=== PATIENT | female | born 1985 | race Caucasian/White ===

== ENCOUNTER 2019-03-14 12:40 | Outpatient (CLI) | payer MEDICAID ==
[~2019-03-14] VITALS: Ht 157.5 cm; Wt 77.0 kg
[2019-03-14 13:28] VITALS: BP 112/53
[2019-03-14 13:45] LABS: MICROSCOPIC INDICATED
[2019-03-14 13:57] LABS: AMPHETAMINE SCREEN, URINE Negative (Negative); BARBITURATE SCREEN, URINE Negative (Negative); BENZODIAZEPINE SCREEN, URINE Negative (Negative); CANNABINOID SCREEN, URINE Negative (Negative); COCAINE SCREEN, URINE Negative (Negative); METHADONE SCREEN, URINE Negative (Negative); OPIATE SCREEN, URINE Negative (Negative)
[2019-03-14 14:37] LABS: BASOPHILS # (AUTO) 0.02 x10^3/uL (0-0.1); BASOPHILS % (AUTO) 0 % (0-1); EOSINOPHILS % (AUTO) 2 % (1-7); LYMPHOCYTES % (AUTO) 15 % (22-44); MD NO; MEAN CORPUSCULAR HEMOGLOBIN 32.3 pg (27.0-34.8); MEAN CORPUSCULAR HGB CONC 33.2 g/dL (32.4-35.8); MEAN CORPUSCULAR VOLUME 97.1 fL (80-100); MONOCYTES # (AUTO) 0.66 x10^3/uL (0.2-0.8); MONOCYTES % (AUTO) 6 % (2-9); NEUTROPHILS # (AUTO) 8.37 x10^3/uL (1.8-6.8); NEUTROPHILS % (AUTO) 77 % (42-75); PLATELET COUNT 297 x10^3/uL (130-400); RED BLOOD COUNT 3.83 x10^6/uL (3.82-5.3); RED CELL DISTRIBUTION WIDTH 13.4 % (9.6-15.2)
[2019-03-14 14:46] LABS: CHLORIDE 108 mmol/L (98-107)
[2019-03-14 14:55] LABS: ALANINE AMINOTRANSFERASE 17 U/L (12-78); ALBUMIN 2.6 g/dL (3.4-5.0); ALKALINE PHOSPHATASE 86 U/L (45-117); ANION GAP 6 mmol/L (5-15); BILIRUBIN,TOTAL 0.4 mg/dL (0.2-1.0); CALCIUM 8.8 mg/dL (8.5-10.1); CREATININE 0.49 mg/dL (0.55-1.02); TOTAL PROTEIN 6.5 g/dL (6.4-8.2)
[2019-03-14 14:57] LABS: RAPID INFLUENZA A Negative (Negative); RAPID INFLUENZA B Negative (Negative)
== END 2019-03-14 15:21 | disposition home or self-care (01) ==
LOC: LDOP 12:40
PROVIDERS: ATTEND Obstetrics & Gynecology
DX: O09.523 Supervision of elderly multigravida, third trimester (principal); O26.813 Pregnancy related exhaustion and fatigue, third trimester; F41.9 Anxiety disorder, unspecified; F32.9 Major depressive disorder, single episode, unspecified; Z3A.36 36 weeks gestation of pregnancy
CPT/HCPCS: 36415; 59025; 80053; 80307; 81001; 85025; 87086; 87400; 99201; G0463

== ENCOUNTER 2019-03-28 02:54 | Outpatient (CLI) | payer MEDICAID ==
[~2019-03-28] VITALS: Ht 157.5 cm; Wt 78.0 kg
== END 2019-03-28 09:48 | disposition home or self-care (01) ==
LOC: LDOP 02:54 → UNDOADMOB 05:48 → LDIP 05:48 → UNDODISOB 09:48 → LDOP 09:48
PROVIDERS: ATTEND Obstetrics & Gynecology
DX: O26.893 Other specified pregnancy related conditions, third trimester (principal); R10.9 Unspecified abdominal pain; Z98.890 Other specified postprocedural states; F17.210 Nicotine dependence, cigarettes, uncomplicated; Z3A.37 37 weeks gestation of pregnancy; F12.90 Cannabis use, unspecified, uncomplicated; Z90.89 Acquired absence of other organs
CPT/HCPCS: 59025; 99211; G0378; G0463

== ENCOUNTER 2019-03-29 18:04 | Outpatient (CLI) | payer MEDICAID ==
[2019-03-29] MEDS ORDERED: ZOLPIDEM 5MG TABLET ONE (19:39)
[2019-03-29] MEDS ORDERED: ZOLPIDEM 5MG TABLET PO SCH (21:00)
== END 2019-03-29 19:45 | disposition home or self-care (01) ==
LOC: LDOP 18:04
PROVIDERS: ATTEND Obstetrics & Gynecology
DX: O26.893 Other specified pregnancy related conditions, third trimester (principal); Z3A.37 37 weeks gestation of pregnancy
CPT/HCPCS: 59025; 99211; G0463

== ENCOUNTER 2019-04-04 22:02 | Outpatient (CLI) | payer MEDICAID ==
[2019-04-04 22:50] LABS: MICROSCOPIC NOT IND
[2019-04-04 22:52] LABS: CULTURE INDICATED? NO
[2019-04-04 23:02] LABS: AMPHETAMINE SCREEN, URINE Negative (Negative); BARBITURATE SCREEN, URINE Negative (Negative); BENZODIAZEPINE SCREEN, URINE Negative (Negative); CANNABINOID SCREEN, URINE Negative (Negative); COCAINE SCREEN, URINE Negative (Negative); METHADONE SCREEN, URINE Negative (Negative); OPIATE SCREEN, URINE Negative (Negative)
[2019-04-05] MEDS ORDERED: PREN1TAB60 PO (18:34)
== END 2019-04-05 00:02 | disposition home or self-care (01) ==
LOC: LDOP 22:02
PROVIDERS: ATTEND Obstetrics & Gynecology
DX: O42.92 Full-term premature rupture of membranes, unspecified as to length of time between rupture and onset of labor (principal); Z3A.39 39 weeks gestation of pregnancy
CPT/HCPCS: 59025; 80307; 81003; 89060; 99211; G0463; Q0114

== ENCOUNTER 2019-04-05 17:39 | Inpatient (IN) | payer MEDICAID ==
[~2019-04-05] VITALS: Ht 157.5 cm; Wt 80.0 kg
[2019-04-05 18:00] VITALS: BP 122/63
[2019-04-05] MEDS ORDERED: PREN1TAB60 PO (18:34)
[2019-04-05] MEDS ORDERED: OXYTOCIN 30U/ 0.9% NaCL 500ML 500 ML IV ONE (18:43)
[2019-04-05] MEDS ORDERED: NEWBORN KIT ONE (18:52)
[2019-04-05] MEDS ORDERED: OXYTOCIN 30U/ 0.9% NaCL 500ML 500 ML ONE (18:52)
[2019-04-05] MEDS ORDERED: MISOPROSTOL 200 MCG TABLET ONE (18:52)
[2019-04-05] MEDS ORDERED: LIDOCAINE 1%, 20ML ONE (18:52)
[2019-04-05] MEDS ORDERED: TERBUTALINE 1 MG/ML, 1ML IVPush PRN (19:00)
[2019-04-05] MEDS ORDERED: TERBUTALINE 1 MG/ML, 1ML SQ PRN (19:00)
[2019-04-05] MEDS ORDERED: FENTANYL PF 100 MCG/2ML IV PRN (19:00)
[2019-04-05] MEDS ORDERED: ONDANSETRON 2MG/ML, 2ML IVPush PRN (19:00)
[2019-04-05 19:02] LABS: AMPHETAMINE SCREEN, URINE Negative (Negative); BARBITURATE SCREEN, URINE Negative (Negative); BENZODIAZEPINE SCREEN, URINE Negative (Negative); CANNABINOID SCREEN, URINE Negative (Negative); COCAINE SCREEN, URINE Negative (Negative); METHADONE SCREEN, URINE Negative (Negative); OPIATE SCREEN, URINE Negative (Negative)
[2019-04-05] MEDS: LACTATED RINGERS 1,000 ML IV SCH ×2 (19:15)
[2019-04-05 19:32] LABS: BASOPHILS # (AUTO) 0.03 x10^3/uL (0-0.1); BASOPHILS % (AUTO) 0 % (0-1); EOSINOPHILS # (AUTO) 0.04 x10^3/uL (0-0.4); EOSINOPHILS % (AUTO) 0 % (1-7); LYMPHOCYTES # (AUTO) 2.17 x10^3/uL (1-3.4); LYMPHOCYTES % (AUTO) 18 % (22-44); MD NO; MEAN CORPUSCULAR HEMOGLOBIN 32.4 pg (27.0-34.8); MEAN CORPUSCULAR HGB CONC 33.9 g/dL (32.4-35.8); MEAN CORPUSCULAR VOLUME 95.6 fL (80-100); MEAN PLATELET VOLUME 7.1 fL (7.4-10.4); MONOCYTES # (AUTO) 0.79 x10^3/uL (0.2-0.8); MONOCYTES % (AUTO) 6 % (2-9); NEUTROPHILS # (AUTO) 9.26 x10^3/uL (1.8-6.8); NEUTROPHILS % (AUTO) 75 % (42-75); PLATELET COUNT 279 x10^3/uL (130-400); RED BLOOD COUNT 3.94 x10^6/uL (3.82-5.3); RED CELL DISTRIBUTION WIDTH 13.1 % (9.6-15.2)
[2019-04-05 20:03] VITALS: BP 125/59
[2019-04-05] MEDS ORDERED: OXYTOCIN 30U/ 0.9% NaCL 500ML 500 ML IV PRN (21:59)
[2019-04-05] MEDS ORDERED: FENTANYL PF 100 MCG/2ML ONE ×2 (22:11→23:15)
[2019-04-05] MEDS: FENTANYL PF 100 MCG/2ML IVPush PRN ×2 (22:14→23:19)
[2019-04-05] MEDS ORDERED: FENTANYL/BUPIV./NS/PF 250 ML EPIDCONT SCH (23:45)
[2019-04-05] MEDS ORDERED: FENTANYL PF 500 MCG, BUPIVACAINE/PF 0.5%, 30ML 62.5 ML in SODIUM CHLORIDE 0.9% 177.5 ML EPIDCONT SCH (23:45)
[2019-04-06] MEDS: FENTANYL PF 100 MCG/2ML IVPush PRN (00:24)
[2019-04-06] MEDS ORDERED: FENTANYL PF 100 MCG/2ML ONE (00:30)
[2019-04-06] MEDS ORDERED: BUPIVACAINE 0.25% ONE ×2 (00:44→00:46)
[2019-04-06] MEDS ORDERED: FENTANYL/BUPIV./NS/PF 250 ML EPIDCONT ONE (00:46)
[2019-04-06] MEDS ORDERED: LIDOCAINE/PF 1.5%-EPI 1:200K, 30ML ONE (00:46)
[2019-04-06] MEDS ORDERED: LIDOCAINE 1%, 20ML ONE (00:46)
[2019-04-06] MEDS ORDERED: EPHEDRINE 50 MG/ML, 1ML ONE (01:05)
[2019-04-06] MEDS ORDERED: FENTANYL/BUPIV./NS/PF 250 ML EPIDCONT SCH (01:09)
[2019-04-06] MEDS ORDERED: NALOXONE 0.4 MG/ML, 1ML IVPush PRN (01:30)
[2019-04-06] MEDS ORDERED: LACTATED RINGERS 1,000 ML IVBOLUS PRN ×2 (01:30)
[2019-04-06] MEDS ORDERED: DIPHENHYDRAMINE 50 MG/ML, 1ML IVPush PRN (01:30)
[2019-04-06] MEDS ORDERED: EPHEDRINE 50 MG/ML, 1ML IVPush PRN ×2 (01:30)
[2019-04-06] MEDS ORDERED: ONDANSETRON 2MG/ML, 2ML IVPush PRN (01:30)
[2019-04-06] MEDS: LACTATED RINGERS 1,000 ML IV SCH ×9 (01:59→23:45)
[2019-04-06] MEDS ORDERED: BISACODYL 10 MG SUPP PR PRN (06:30)
[2019-04-06] MEDS ORDERED: MISOPROSTOL 200 MCG TABLET PR PRN (06:30)
[2019-04-06] MEDS ORDERED: GLYCERIN ADULT SUPP PR PRN (06:30)
[2019-04-06] MEDS ORDERED: ACETAMINOPHEN 325 MG TABLET PO PRN (06:30)
[2019-04-06] MEDS ORDERED: ONDANSETRON 2MG/ML, 2ML IV PRN (06:30)
[2019-04-06] MEDS ORDERED: SIMETHICONE 80 MG CHEW TAB PO PRN (06:30)
[2019-04-06] MEDS ORDERED: METHYLERGONOVINE 0.2 MG/ML IM PRN (06:30)
[2019-04-06] MEDS ORDERED: METOCLOPRAMIDE 5 MG/ML, 2ML IV PRN (06:30)
[2019-04-06] MEDS ORDERED: OXYTOCIN 30U/ 0.9% NaCL 500ML 500 ML ONE (08:07)
[2019-04-06] MEDS: OXYTOCIN 30U/ 0.9% NaCL 500ML 500 ML IV SCH ×2 (08:09→16:26)
[2019-04-06 08:30] VITALS: BP 107/65
[2019-04-06] MEDS: PRENATAL VIT/IRON/FA 1 EACH TABLET PO SCH (09:01)
[2019-04-06] MEDS: DOCUSATE 100 MG CAPSULE PO PRN (09:01)
[2019-04-06] MEDS: IBUPROFEN 800 MG TABLET PO PRN ×2 (09:01→18:19)
[2019-04-06 12:53] VITALS: BP 106/69
[2019-04-06 14:05] LABS: MEAN CORPUSCULAR HEMOGLOBIN 32.4 pg (27.0-34.8); MEAN CORPUSCULAR HGB CONC 33.7 g/dL (32.4-35.8); MEAN CORPUSCULAR VOLUME 96.2 fL (80-100); MEAN PLATELET VOLUME 6.9 fL (7.4-10.4); PLATELET COUNT 256 x10^3/uL (130-400); RED BLOOD COUNT 3.46 x10^6/uL (3.82-5.3); RED CELL DISTRIBUTION WIDTH 13.5 % (9.6-15.2)
[2019-04-06 14:35] LABS: BASOPHILS # (AUTO) 0.01 x10^3/uL (0-0.1); BASOPHILS % (AUTO) 0 % (0-1); EOSINOPHILS # (AUTO) 0.05 x10^3/uL (0-0.4); EOSINOPHILS % (AUTO) 0 % (1-7); LYMPHOCYTES # (AUTO) 1.59 x10^3/uL (1-3.4); LYMPHOCYTES % (AUTO) 8 % (22-44); MD SCAN; MONOCYTES # (AUTO) 0.82 x10^3/uL (0.2-0.8); MONOCYTES % (AUTO) 4 % (2-9); NEUTROPHILS # (AUTO) 17.95 x10^3/uL (1.8-6.8); NEUTROPHILS % (AUTO) 88 % (42-75)
[2019-04-06 16:30] VITALS: BP 100/58
[2019-04-06] MEDS: OXYcodone/APAP 5/325MG TABLET PO PRN ×2 (18:19→22:25)
[2019-04-06 19:31] VITALS: BP 99/64
[2019-04-07] MEDS: LACTATED RINGERS 1,000 ML IV SCH ×9 (00:40→23:45)
[2019-04-07 00:41] VITALS: BP 108/71
[2019-04-07] MEDS: OXYTOCIN 30U/ 0.9% NaCL 500ML 500 ML IV SCH ×3 (00:41→22:26)
[2019-04-07 03:56] VITALS: BP 100/67
[2019-04-07] MEDS: IBUPROFEN 600 MG TABLET PO PRN ×3 (05:45→19:44)
[2019-04-07] MEDS: OXYcodone/APAP 5/325MG TABLET PO PRN ×4 (05:45→19:45)
[2019-04-07] MEDS: DOCUSATE 100 MG CAPSULE PO PRN ×2 (05:45→09:58)
[2019-04-07 07:30] VITALS: BP 106/66
[2019-04-07] MEDS: PRENATAL VIT/IRON/FA 1 EACH TABLET PO SCH (09:58)
[2019-04-07 20:03] VITALS: BP 104/70
[2019-04-08] MEDS: LACTATED RINGERS 1,000 ML IV SCH ×5 (01:09→10:43)
[2019-04-08] MEDS: OXYcodone/APAP 5/325MG TABLET PO PRN ×3 (02:35→12:57)
[2019-04-08] MEDS: IBUPROFEN 600 MG TABLET PO PRN (02:36)
[2019-04-08 08:00] VITALS: BP 112/65
[2019-04-08] MEDS: IBUPROFEN 800 MG TABLET PO PRN (08:13)
[2019-04-08] MEDS: PRENATAL VIT/IRON/FA 1 EACH TABLET PO SCH (08:14)
[2019-04-08] MEDS: OXYTOCIN 30U/ 0.9% NaCL 500ML 500 ML IV SCH (08:26)
[2019-04-08] MEDS ORDERED: DOCU-131 PO (11:01)
[2019-04-08] MEDS ORDERED: IBUP-1222 PO (11:01)
[2019-04-08] MEDS ORDERED: OXYC-302 PO (11:01)
== END 2019-04-08 14:59 | disposition home or self-care (01) | DRG 560 ==
LOC: LDOP 17:39 → LDIP 18:55 → 2NW 04-06 08:21
PROVIDERS: ADMIT Obstetrics & Gynecology; ATTEND Obstetrics & Gynecology
PROC: 10E0XZZ Delivery of Products of Conception, External Approach (ICD-10-PCS; principal; 2019-04-06)
PROC: 0HQ9XZZ Repair Perineum Skin, External Approach (ICD-10-PCS; 2019-04-06)
PROC: 10907ZC Drainage of Amniotic Fluid, Therapeutic from Products of Conception, Via Natural or Artificial Opening (ICD-10-PCS; 2019-04-06)
PROC: 3E0R3BZ Introduction of Anesthetic Agent into Spinal Canal, Percutaneous Approach (ICD-10-PCS; 2019-04-06)
PROC: 00HU33Z Insertion of Infusion Device into Spinal Canal, Percutaneous Approach (ICD-10-PCS; 2019-04-06)
DX: O77.0 Labor and delivery complicated by meconium in amniotic fluid (principal); O99.324 Drug use complicating childbirth; O70.0 First degree perineal laceration during delivery; Z37.0 Single live birth; Z3A.39 39 weeks gestation of pregnancy; F12.90 Cannabis use, unspecified, uncomplicated
CPT/HCPCS: J3490; S0020; 36415; 80307; 82803; 85025; 86850; 86900; G0378; J3010; J2590; J7050; J7120